=== PATIENT | male | born 1955 | race Caucasian/White ===

== ENCOUNTER → 2021-04-25 11:49 | Outpatient (CLI) | payer MEDICARE, SELFPAY ==
[2021-04-25 14:49] LABS: COVID19 -Nasal RAPID Negative (Negative)
== END ==
PROVIDERS: Family Provider Family Medicine; Visit Provider Nurse Practitioner
DX: Z20.822 Contact with and (suspected) exposure to COVID-19 (principal)
CPT/HCPCS: 87635

== ENCOUNTER → 2024-05-10 10:24 | Outpatient (CLI) | payer MEDICARE, SELFPAY ==
--- NOTE | 2024-05-10 10:34 | DI.RAD.S_ITS ---
PROCEDURE: XR CHEST 2V INDICATIONS: cough x 3 weeks, congestion/wheezing right lung TECHNIQUE: 2 views of the chest were acquired. COMPARISON: None. FINDINGS: Surgical changes and devices: None. Lungs and pleura: Lungs are clear. No pleural effusions or pneumothorax. Mediastinum: Mediastinal contours are normal. Heart size is normal. Bones and chest wall: No suspicious bony abnormalities. Soft tissues appear unremarkable. IMPRESSION: No acute pulmonary process. Dictated by: Gracie Cuello M.D. on 05/10/2024 at 17:41 Approved by: Gracie Cuello M.D. on 05/10/2024 at 17:41
[2024-05-10 11:20] LABS: Influenza A - CEPHEID Flu A NEGATIVE (NEGATIVE); Influenza B - CEPHEID Flu B NEGATIVE (NEGATIVE); Respiratory Syncytial Virus Negative (Negative)
[2024-05-10 11:43] LABS: COVID-19 CEPHEID 4-PLEX PCR Negative (Negative)
== END ==
PROVIDERS: Family Provider Family Medicine; Referring Provider Physician Assistant; Visit Provider Physician Assistant
DX: R05.1 Acute cough (principal); J06.9 Acute upper respiratory infection, unspecified
CPT/HCPCS: 0241U; 71046